=== PATIENT | male | born 1970 ===

== ENCOUNTER 2020-07-09 10:10 | Outpatient (CLI) | payer OTHER, SELFPAY ==
--- NOTE | 2020-07-09 10:00 | DI.RAD_ITS ---
EXAM: XR KNEE LT 3V AP,LAT,JOSE ALBERTO CLINICAL HISTORY: eval L knee pain, h/o surgery and trauma in 80/90s. TECHNIQUE: 2D digital imaging was performed. COMPARISON: No exams were available for comparison FINDINGS: Three views of the left knee reveal no evidence of fracture. There is small amount of increased joint fluid. Advanced degenerative osteoarthritic changes are noted, most prominent in the medial patellof emoral compartment. Chondrocalcinosis is noted in the lateral compartment. There are intra-articular bodies noted in the lateral aspect of the suprapatellar bursa. IMPRESSION: DATA REPOSITORY: RADIATION DOSE DELIVERED:
--- NOTE | 2020-07-09 10:00 | DI.RAD_ITS ---
EXAM: XR FEMUR LT CLINICAL HISTORY: eval L femur, pain and h/o fracture. TECHNIQUE: 2D digital imaging was performed. COMPARISON: No exams were available for comparison FINDINGS: Healed fracture deformity noted at the midshaft of the femur. Significant degenerative changes in th e knee joint. No obvious degenerative changes in the hip joint. Buttock granulomas noted. Sign rib IMPRESSION: DATA REPOSITORY: RADIATION DOSE DELIVERED:
== END 2020-07-09 10:11 | disposition home or self-care (01) ==
LOC: DIORS 10:10
PROVIDERS: PCP Nurse Practitioner Family; Referring Provider Nurse Practitioner Family; Visit Provider Student in an Organized Health Care Education/Training Program
DX: M17.12 Unilateral primary osteoarthritis, left knee (principal); M11.262 Other chondrocalcinosis, left knee; M79.652 Pain in left thigh; M21.852 Other specified acquired deformities of left thigh
CPT/HCPCS: 73552; 73562

== ENCOUNTER 2020-10-29 01:43 | Emergency (ER) | payer OTHER, SELFPAY ==
[2020-10-29] VITALS (8 sets, daily range): BP systolic 113–122; BP diastolic 59–72; PULSE 74–86; RESP 16; TEMP 36.4; O2SAT 96–100
--- NOTE | 2020-10-29 01:45 | DI.CT_ITS ---
Exam(s) CT HEAD WO EXAM: CT HEAD WO CLINICAL HISTORY: seizure, known brain lesion. TECHNIQUE: Imaging Protocol: Axial computed tomography images with coronal and sagittal reformatted images were created and reviewed COMPARISON: No exams were available for comparison FINDINGS: There are no skull fractures nor fluid in the visualized paranasal sinuses. There is mild mucosal t hickening in the right maxillary sinus. No associated fluid therein. There is no evidence of intracranial hemorrhage, mass effect, or shift of midline structures. There are no extra-axial fluid collections. The ventricles are not enlarged or shifted and there is no blo od within the ventricular system nor within the basal cisterns. There is an area of encephalomalacia in the right temporal lobe within the middle cranial fossa and a lilian. Probably related to prior infarction IMPRESSION: No acute intracranial findings on this noninfused CT scan of the brain. Area of encephalomalacia in the right temporal lobe noted. Comparison to prior studies be helpful if they exist. RADIATION DOSE DELIVERED: 794.11mGy.cm Total DLP DATA REPOSITORY: All CT scans at this facility are submitted to the National Radiology Data Registry (NRDR) Dose Index Registry (DIR) with the [employer] (ACR). RADIATION OPTIMIZATION: All CT scans at this facility use at least one of these dose optimization te chniques: automated exposure control; mA and/or kV adjustment per patient size (includes targeted exa ms where dose is matched to clinical indication); or iterative reconstruction.
--- NOTE | 2020-10-29 01:52 | ED.GENADUL_ITS ---
Discharge Plan Disposition Patient Disposition: [facility] Condition: Good Discharge Details Clinical Impression: Seizure Primary Care Provider: Shaina Vargas ED Provider: Juan Carlos Kim Home Meds and New Rx's Prescriptions: New levetiracetam [Keppra] 500 mg tablet 500 mg PO BID Qty: 90 RF: 3 Continued sennosides [senna] 8.6 mg Tablet 17.2 mg PO BID PRNRF: 0 trazodone 50 mg Tablet 50 mg PO QHS PRNRF: 0 riboflavin (vitamin B2) [Vitamin B-2] 100 mg Tablet 200 mg PO BID RF: 0 melatonin 3 mg Tablet 9 mg PO QHS PRNRF: 0 spironolactone 25 mg Tablet 25 mg PO BID RF: 0 ibuprofen 400 mg Tablet 400 mg PO TID PRNRF: 0 docusate sodium [Colace] 100 mg Capsule 100 mg PO BID PRNRF: 0 buspirone 15 mg Tablet 15 mg PO BID RF: 0 calcium phos,dibas-vitamin D3 77-400 mg-unit Tablet 1 tab PO DAILY RF: 0 lactulose 10 gram/15 mL Solution 15 ml PO BID RF: 0 magnesium oxide 400 mg magnesium Tablet 400 mg PO DAILY RF: 0 sodium chloride [Saline Nasal] 0.65 % Aerosol,[place] 2 spray INTRANASAL DAILY PRNRF: 0 Cetaphil Cream 1 applic TOPICAL BID PRNRF: 0 Discharge Instructions Instructions: Recurrent Seizures in Adults (ED) Additional Instructions: With your recurrence of seizures I do feel that it is in your best interest and safety to start you on a new antiepileptic medication. We will use the same 1 that you have used in the past, Keppra. Please take this as directed. Please follow-up closely with your [facility] neurologist. If you notice any worsening of your symptoms, or any new symptoms such as vomiting, diarrhea, fever, chills, shortness of breath, chest pain, numbness, weakness, or fainting , please return immediately to the emergency department for reevaluation. Please follow up with your primary care provider as soon as possible for reassessment and reevaluation. As always, it was a pleasure participating in your medical care today. 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 Patient states in the distant past he was on Keppra, but he has not taken this for some time secondary to unknown reasons. He did have a seizure back in July 08 at [facility], and he has seen neurology on September 21, 2020 at [facility] but declined seizure medications at that time. Today while he was in his custodial cell one of his roommates noted him to be shaking and seizing. He does not recall the event. There was no micturition or defecation. He did not bite his tongue. EMS arrived and the patient was in a postictal state, vital signs are stable, glucose is normal and he is brought into the ER for further evaluation. Currently the patient feels back at his baseline, he denies any headache chest pain shortness of breath numbness tingling or weakness. He denies any new acute changes in his medications. He does not recall the seizure event, but states that how it usually is. He often gets an aura for 60 to 90 seconds before the seizure and then no recollection. He admits to having them usually between 3 and 6 times a year. Patient denies any other complaints. No other modifying factors. Physical exam is unremarkable, neurologic exam is reassuring. Suspect seizure secondary to the lack of medication use, especially in the context of his history of seizure. We will get a CT scan to evaluate for acute change, will get basic labs, gently rehydrate give 2 g of Keppra. Upon review of the last note from [facility] it does appear that they were debating whether or not to start an antiepileptic, however the patient declined at that time however with his new continued onset seizures I do feel that starting him on Keppra would be beneficial for his health and wellbeing at this time. 2:56 AM Patient remained stable here in the ED. Repeat neurologic exam continues to show no focal neurologic deficits. Laboratory work-up has returned relatively unremarkable. No significant abnormalities. Patient stable. CT scan demonstrates previous area of encephalomalacia noted on previous [facility] images. We did give the patient 2 g of Keppra here, and will give her prescription for Keppra for home use. I think it would be unwise at this point to keep the patient off of antiepileptic medications for the time being especially in regards to his history of cirrhosis, and his notable proclivity towards prolonged bleeding that he is stated clinically whenever he cuts himself even with a paper cut likely secondary to his chronic cirrhosis. If the patient did have another epileptic episode and he fell and hit his head, fell off a bunk or had some other form of trauma I feel it would be very life-threatening potentially. Discussed red flags which to return as well as the importance of close follow-up with neurology. I have extensively reviewed the treatment plan and discharge instructions with the patient. I have addressed all patient concerns at this time. The patient was made aware of what symptoms to monitor for that would warrant a return to the emergency department. Discussed the plan with the patient, they demonstrate verbal understanding and agreement with our assessment and plan at this time. The documentation in this chart was dictated using [employer] dictation software. Please excuse any dictation errors. FINDINGS: Brain: Gliosis/encephalomalacia in the posterior right temporal lobe No hemorrhage. No mass effect. Cerebral ventricles: No ventriculomegaly. Paranasal sinuses: Visualized sinuses are unremarkable. No fluid levels. Mastoid air cells: Visualized mastoid air cells are well aerated. Bones/joints: Unremarkable. No acute fracture. Soft tissues: Unremarkable. IMPRESSION: No acute intracranial hemorrhage Presumed gliosis/encephalomalacia in the posterior right temporal lobe. Thank you for allowing us to participate in the care of your patient. HPI General Date/Time Provider Initiated Documentation: 10/29/20 02:37 . 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 Patient states in the distant past he was on Keppra, but he has not taken this for some time secondary to unknown reasons. He did have a seizure back in July 08 at [facility], and he has seen neurology on September 21, 2020 at [facility] but declined seizure medications at that time. Today while he was in his custodial cell one of his roommates noted him to be shaking and seizing. He does not recall the event. There was no micturition or defecation. He did not bite his tongue. EMS arrived and the patient was in a postictal state, vital signs are stable, glucose is normal and he is brought into the ER for further evaluation. Currently the patient feels back at his baseline, he denies any headache chest pain shortness of breath numbness tingling or weakness. He denies any new acute changes in his medications. He does not recall the seizure event, but states that how it usually is. He often gets an aura for 60 to 90 seconds before the seizure and then no recollection. He admits to having them usually between 3 and 6 times a year. Patient denies any other complaints. No other modifying factors. Related Data Home Medications Medication Instructions Recorded Confirmed Cetaphil 1 applic TOPICAL BID PRN 10/29/20 10/29/20 buspirone 15 mg PO BID 10/29/20 10/29/20 calcium phos,dibas-vitamin D3 1 tab PO DAILY 10/29/20 10/29/20 docusate sodium [Colace] 100 mg PO BID PRN 10/29/20 10/29/20 ibuprofen 400 mg PO TID PRN 10/29/20 10/29/20 lactulose 15 ml PO BID 10/29/20 10/29/20 levetiracetam [Keppra] 500 mg PO BID #90 tab 10/29/20 magnesium oxide 400 mg PO DAILY 10/29/20 10/29/20 melatonin 9 mg PO QHS PRN 10/29/20 10/29/20 riboflavin (vitamin B2) [Vitamin 200 mg PO BID 10/29/20 10/29/20 B-2] sennosides [senna] 17.2 mg PO BID PRN 10/29/20 10/29/20 sodium chloride [Saline Nasal] 2 spray INTRANASAL DAILY PRN 10/29/20 10/29/20 spironolactone 25 mg PO BID 10/29/20 10/29/20 trazodone 50 mg PO QHS PRN 10/29/20 10/29/20 Previous Rx's Medication Instructions Recorded levetiracetam [Keppra] 500 mg PO BID #90 tab 10/29/20 Allergies Allergy/AdvReac Type Severity Reaction Status Date / Time diphenhydramine Allergy Intermediate FACIAL Verified 10/29/20 01:41 [From Benadryl] EDEMA lorazepam Allergy Unknown Unverified 10/29/20 01:40 Penicillins Allergy Unknown Verified 10/29/20 01:41 Review of Systems All systems reviewed & are unremarkable except as noted in HPI and below PFSH Medical History Closed left femoral fracture Osteoarthritis of left knee Social History Smoking/Tobacco Use Status: Former Tobacco Use Smoking risk assessment performed?: Yes Do you feel safe at home: Yes (Incarcerated) Exam Narrative Exam Narrative: 1.Const: Well-nourished, Well-developed, appearing stated age 2.Eyes: PERRL, no conjunctival injection, and symmetrical lids. 3.ENT: Atraumatic external nose and ears. Notably dry MM. Neck: Symmetric, trachea midline, No thyromegaly. 4.CVS: +S1/S2, No murmurs or gallops. Peripheral pulses 2+ and equal in all extremities. Brisk capillary refill in all extremities. 5.RESP: Unlabored respiratory effort. Clear to auscultation bilaterally. No wheezes rales or rhonchi 6.GI: Soft, Nontender/Nondistended, No hepatosplenomegaly. No guarding or rebound. 7.MSK: Normocephalic/Atraumatic, Extremities w/o deformity or ttp No cyanosis or clubbing, Normal movement of all extremities. No asterixis 8.Skin: Warm, Dry. No rashes or lesions. 9.Neuro: depilatory painter II-XII grossly intact. Sensation grossly intact, no focal neurologic deficits. No dysdiadochokinesia or dysmetria. No ataxia. 10.Psych: (AAO) x3. Appropriate mood and affect
--- NOTE | 2020-10-29 02:24 | DI.VRAD_ITS ---
PROCEDURE INFORMATION: Exam: CT Head Without Contrast Exam date and time: 10/29/2020 1:47 AM Age: 50 years old Clinical indication: Other: Seizure, known brain lesion TECHNIQUE: Imaging protocol: Computed tomography of the head without contrast. Radiation optimization: All CT scans at this facility use at least one of these dose optimization techniques: automated exposure control; mA and/or kV adjustment per patient size (includes targeted exams where dose is matched to clinical indication); or iterative reconstruction. COMPARISON: No relevant prior studies available. FINDINGS: Brain: Gliosis/encephalomalacia in the posterior right temporal lobe No hemorrhage. No mass effect. Cerebral ventricles: No ventriculomegaly. Paranasal sinuses: Visualized sinuses are unremarkable. No fluid levels. Mastoid air cells: Visualized mastoid air cells are well aerated. Bones/joints: Unremarkable. No acute fracture. Soft tissues: Unremarkable. IMPRESSION: No acute intracranial hemorrhage Presumed gliosis/encephalomalacia in the posterior right temporal lobe. Comparison with prior images would be helpful. Dictated and Authenticated by: Jerry Sanchez MD. Ordering:MARIANA Rangel MD
[2020-10-29 02:33] LABS: Abs Immature Grans 0.02 10^3/uL (0.0-0.06); Absolute Basophil Count 0.04 10^3/uL (0.0-0.2); Absolute Eosinophil Count 0.39 10^3/uL (0.0-0.7); Absolute Lymphocyte Count 1.98 10^3/uL (1.2-3.4); Absolute Monocyte Count 0.51 10^3/uL (0.1-0.8); Absolute Neutrophil Count 3.42 10^3/uL (1.2-6.7); Basophils % 0.6; Eosinophils % 6.1; HCT 38.2 % (40.0-50.0); HGB 12.5 g/dL (13.5-17.5); Immature Grans % 0.3; Lymphocytes % 31.1; MCH 28.2 pg (27.0-33.0); MCHC 32.7 % (32.0-36.0); MCV 86.2 fL (80-95); MPV 9.3 fL (8.0-11.0); Neutrophils % 53.9; Nucleated RBC 0 %; Platelet Count 233 10^3/uL (130-400); RBC 4.43 10^6/uL (4.36-5.78); RDW 13.3 % (11.8-14.1); RDW-SD 41.6 fL; WBC 6.36 10^3/uL (4.4-10.8)
[2020-10-29] MEDS: Normal Saline 1,000 ML 1000 ML IV (02:33)
[2020-10-29] MEDS: levETIRAcetam 2,000 MG in Normal Saline 100 ML 400 MG IVPB (02:34)
[2020-10-29 02:43] LABS: Ammonia < 10 umol/L (11-32)
[2020-10-29 02:51] LABS: ALT 26 U/L (16-63); AST 42 U/L (15-37); Albumin 3.7 g/dL (3.4-5.0); Alkaline Phosphatase 90 U/L (46-116); Anion Gap 5.8 mmol/L (3-11); BUN 10 mg/dL (7-18); Bilirubin, Total 0.4 mg/dL (0.2-1.0); CO2 32.2 mmol/L (21.0-32.0); CREATININE 0.7 mg/dL (0.70-1.30); Calcium 8.9 mg/dL (8.5-10.1); Chloride 104 mmol/L (98-107); Glucose 85 mg/dL (74-106); Potassium 4.1 mmol/L (3.5-5.1); Sodium 142 mmol/L (136-145); Total Protein 7.2 g/dL (6.4-8.2)
== END 2020-10-29 03:39 | disposition home or self-care (01) ==
LOC: ER 03:05
PROVIDERS: Emergency Provider Student in an Organized Health Care Education/Training Program; PCP Nurse Practitioner Family
DX: R56.9 Unspecified convulsions (principal)
CPT/HCPCS: 36415; 80053; 96361; 96365; 99284; 70450; 82140; 85025; J1953

== ENCOUNTER 2021-01-13 00:21 | Emergency (ER) | payer OTHER, SELFPAY ==
[2021-01-13 00:24] VITALS: BP 116/72; PULSE 91; RESP 16; TEMP 37; O2SAT 97
[2021-01-13] MEDS: Normal Saline 500 ML IV (00:31)
[2021-01-13] MEDS: levETIRAcetam 1,000 MG in Normal Saline 100 ML 400 MG IVPB (00:39)
--- NOTE | 2021-01-13 00:45 | W.ED.GENAD ---
Discharge Plan Disposition Patient Disposition: HOME Condition: Good Discharge Details Clinical Impression: Seizure Primary Care Provider: Shaina Vargas ED Provider: Juan Carlos Kim Home Meds and New Rx's Prescriptions: Continued sennosides [senna] 8.6 mg Tablet 17.2 mg PO BID PRNRF: 0 trazodone 50 mg Tablet 50 mg PO QHS PRNRF: 0 riboflavin (vitamin B2) [Vitamin B-2] 100 mg Tablet 200 mg PO BID RF: 0 melatonin 3 mg Tablet 9 mg PO QHS PRNRF: 0 spironolactone 25 mg Tablet 25 mg PO BID RF: 0 ibuprofen 400 mg Tablet 400 mg PO TID PRNRF: 0 docusate sodium [Colace] 100 mg Capsule 100 mg PO BID PRNRF: 0 buspirone 15 mg Tablet 15 mg PO BID RF: 0 calcium phos,dibas-vitamin D3 77-400 mg-unit Tablet 1 tab PO DAILY RF: 0 lactulose 10 gram/15 mL Solution 15 ml PO BID RF: 0 magnesium oxide 400 mg magnesium Tablet 400 mg PO DAILY RF: 0 sodium chloride [Saline Nasal] 0.65 % Aerosol,[place] 2 spray INTRANASAL DAILY PRNRF: 0 Cetaphil Cream 1 applic TOPICAL BID PRNRF: 0 levetiracetam [Keppra] 500 mg tablet 500 mg PO BID Qty: 90 RF: 3 Discharge Instructions Instructions: Recurrent Seizures in Adults (ED) Additional Instructions: Please stay well-hydrated and drink plenty of fluids. It is my recommendation that you continue taking your Keppra as prescribed. This will help prevent the seizures that you are having. If you notice any worsening of your symptoms, or any new symptoms such as vomiting, diarrhea, fever, chills, shortness of breath, chest pain, numbness, weakness, or fainting , please return immediately to the emergency department for reevaluation. Please follow up with your primary care provider as soon as possible for reassessment and reevaluation. As always, it was a pleasure participating in your medical care today. 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 Per nursing home staff, the patient was lying in bed when he was noticed to have a seizure lasting around a minute, with tonic-clonic component. He eventually stopped seizing on his own, he was subsequently brought in by EMS for further evaluation. Glucose normal, neurovascular exam and neurologic assessment unremarkable on EMS arrival. Patient did have a postictal phase but was acting normally upon EMS assessment. Currently the patient has no complaints, he does state that he does not take his Keppra by choice, as he does not feel like it was helping. He denies any IV or illicit drugs. He denies any other complaints. Physical exam demonstrates no neurologic deficits, small bite on the tip of the tongue, no other abnormalities, no meningeal signs. Patient has not been taking his Keppra and his subsequently sees, I feel this is because of his underlying chronic brain conditions resulting in seizures. Did recommend that the patient continue with Keppra, did recommend getting 1 g of Keppra here, and 500 cc bolus, patient verbalized agreement with this plan. With no focal neurologic deficits, no trauma, I see no indication for repeat neuroimaging emergently at this time. 1:18 AM Patient has been reassessed, no focal neurologic deficits on reassessment. Patient feeling well, he has been well-hydrated. Recommend continuing his Keppra back in nursing home. Discussed the importance of medication compliance to prevent future seizures. Discussed red flags which to return. Patient appropriate for discharge at this time. I have extensively reviewed the treatment plan and discharge instructions with the patient. I have addressed all patient concerns at this time. The patient was made aware of what symptoms to monitor for that would warrant a return to the emergency department. Discussed the plan with the patient, they demonstrate verbal understanding and agreement with our assessment and plan at this time. The documentation in this chart was dictated using [email or web address] dictation software. Please excuse any dictation errors. HPI General Date/Time Provider Initiated Documentation: 01/13/21 00:44. 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 Per nursing home staff, the patient was lying in bed when he was noticed to have a seizure lasting around a minute, with tonic-clonic component. He eventually stopped seizing on his own, he was subsequently brought in by EMS for further evaluation. Glucose normal, neurovascular exam and neurologic assessment unremarkable on EMS arrival. Patient did have a postictal phase but was acting normally upon EMS assessment. Currently the patient has no complaints, he does state that he does not take his Keppra by choice, as he does not feel like it was helping. He denies any IV or illicit drugs. He denies any other complaints. Related Data Home Medications Medication Instructions Recorded Confirmed Cetaphil 1 applic TOPICAL BID PRN 10/29/20 10/29/20 buspirone 15 mg PO BID 10/29/20 01/13/21 calcium phos,dibas-vitamin D3 1 tab PO DAILY 10/29/20 10/29/20 docusate sodium [Colace] 100 mg PO BID PRN 10/29/20 01/13/21 ibuprofen 400 mg PO TID PRN 10/29/20 01/13/21 lactulose 15 ml PO BID 10/29/20 10/29/20 levetiracetam [Keppra] 500 mg PO BID #90 tab 10/29/20 magnesium oxide 400 mg PO DAILY 10/29/20 10/29/20 melatonin 9 mg PO QHS PRN 10/29/20 10/29/20 riboflavin (vitamin B2) [Vitamin 200 mg PO BID 10/29/20 10/29/20 B-2] sennosides [senna] 17.2 mg PO BID PRN 10/29/20 01/13/21 sodium chloride [Saline Nasal] 2 spray INTRANASAL DAILY PRN 10/29/20 10/29/20 spironolactone 25 mg PO BID 10/29/20 10/29/20 trazodone 50 mg PO QHS PRN 10/29/20 01/13/21 Previous Rx's Medication Instructions Recorded levetiracetam [Keppra] 500 mg PO BID #90 tab 10/29/20 Allergies Allergy/AdvReac Type Severity Reaction Status Date / Time diphenhydramine Allergy Intermediate FACIAL Verified 01/13/21 00:28 [From Benadryl] EDEMA lorazepam Allergy Unknown Unverified 01/13/21 00:28 Penicillins Allergy Unknown Verified 01/13/21 00:28 General Stated Complaint: Seizure SUHA: 4 Review of Systems All systems reviewed & are unremarkable except as noted in HPI and below PFSH Medical History Closed left femoral fracture Osteoarthritis of left knee Social History Smoking/Tobacco Use Status: Former Tobacco Use Smoking risk assessment performed?: Yes Alcohol Intake: former Substance use type: does not use Do you feel safe at home: Yes (Incarcerated) Exam Narrative Exam Narrative: 1.Const: Well-nourished, Well-developed, appearing stated age 2.Eyes: PERRL, no conjunctival injection, and symmetrical lids. 3.ENT: Atraumatic external nose and ears. Moist MM. Neck: Symmetric, trachea midline, No thyromegaly. Patient demonstrates good movement of cervical neck. There is no nuchal rigidity, no nuchal tenderness. Patient is able to flex the neck without any difficulty or significant pain. Negative Kernig's and Brudzinski sign. Small bite on the tip of the tongue 4.CVS: +S1/S2, No murmurs or gallops. Peripheral pulses 2+ and equal in all extremities. Brisk capillary refill in all extremities. 5.RESP: Unlabored respiratory effort. Clear to auscultation bilaterally. No wheezes rales or rhonchi 6.GI: Soft, Nontender/Nondistended, No hepatosplenomegaly. No guarding or rebound. 7.MSK: Normocephalic/Atraumatic, Extremities w/o deformity or ttp No cyanosis or clubbing, Normal movement of all extremities 8.Skin: Warm, Dry. No rashes or lesions. 9.Neuro: retaining room cutter II-XII grossly intact. Sensation grossly intact, no focal neurologic deficits. All 6 cardinal planes of vision are fully intact. No evidence of rotatory or vertical nystagmus. The patient demonstrated a normal [id number], good dexterity. There was no evidence of dysdiadochokinesia. Patient was able to ambulate without difficulty. There was no wide-based gait. Romberg testing was normal. [id number] testing was normal. Sensation was intact bilaterally as well as muscle strength bilaterally for all extremities. Patient was able to verbalize butter cup with no slurring, or miss pronunciation. 10.Psych: (AAO) x3. Appropriate mood and affect Course Vital Signs Vital signs: Vital Signs Temperature 37.0 C 01/13/21 00:24 Pulse 91 H 01/13/21 00:24 Respiratory Rate 16 01/13/21 00:24 Blood Pressure 116/72 01/13/21 00:24 Pulse Oximetry 97 01/13/21 00:24 Temperature 37.0 C 01/13/21 00:24 Pulse 91 H 01/13/21 00:24 Respiratory Rate 16 01/13/21 00:24 Respiratory Effort Non-Labored 01/13/21 00:30 Respiratory Depth Normal 01/13/21 00:30 Respiratory Pattern Normal 01/13/21 00:30 Blood Pressure 116/72 01/13/21 00:24 Pulse Oximetry 97 01/13/21 00:24 Pain Level 9 01/13/21 00:24
[2021-01-13 01:00] VITALS: BP 112/91; PULSE 74; RESP 16; O2SAT 98
== END 2021-01-13 01:16 | disposition home or self-care (01) ==
LOC: ER 00:59
PROVIDERS: Emergency Provider Student in an Organized Health Care Education/Training Program; PCP Nurse Practitioner Family
DX: R56.9 Unspecified convulsions (principal); Z91.14 Patient's other noncompliance with medication regimen
CPT/HCPCS: 96361; 96365; 99284; 99283; J1953

== ENCOUNTER 2021-02-07 22:19 | Emergency (ER) | payer OTHER, SELFPAY ==
[2021-02-07] VITALS (8 sets, daily range): BP systolic 123–128; BP diastolic 74–78; PULSE 71–98; RESP 18; TEMP 37; O2SAT 97–100
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
[2021-02-07 23:02] LABS: Abs Immature Grans 0.01 10^3/uL (0.0-0.06); Absolute Basophil Count 0.03 10^3/uL (0.0-0.2); Absolute Eosinophil Count 0.37 10^3/uL (0.0-0.7); Absolute Lymphocyte Count 2.21 10^3/uL (1.2-3.4); Absolute Monocyte Count 0.29 10^3/uL (0.1-0.8); Absolute Neutrophil Count 2.72 10^3/uL (1.2-6.7); Basophils % 0.5; Eosinophils % 6.6; HCT 33.9 % (40.0-50.0); HGB 11.2 g/dL (13.5-17.5); Immature Grans % 0.2; Lymphocytes % 39.3; MCH 28.5 pg (27.0-33.0); MCV 86.3 fL (80-95); MPV 9.5 fL (8.0-11.0); Monocytes % 5.2; Neutrophils % 48.2; Nucleated RBC 0 %; Platelet Count 192 10^3/uL (130-400); RBC 3.93 10^6/uL (4.36-5.78); RDW 12.6 % (11.8-14.1); RDW-SD 39.8 fL; WBC 5.63 10^3/uL (4.4-10.8)
[2021-02-07 23:16] LABS: ALT 15 U/L (16-63); AST 17 U/L (15-37); Albumin 3.7 g/dL (3.4-5.0); Alkaline Phosphatase 73 U/L (46-116); Anion Gap 10.2 mmol/L (3-11); BUN 8 mg/dL (7-18); Bilirubin, Total 0.5 mg/dL (0.2-1.0); CO2 27.8 mmol/L (21.0-32.0); CREATININE 0.8 mg/dL (0.70-1.30); Calcium 8.8 mg/dL (8.5-10.1); Chloride 103 mmol/L (98-107); Glucose 97 mg/dL (74-106); Potassium 3.5 mmol/L (3.5-5.1); Sodium 141 mmol/L (136-145); TROPONIN-I < 0.5 ug/mL (4.0-12.0); Total Protein 7.1 g/dL (6.4-8.2)
[2021-02-07] MEDS: levETIRAcetam 250 MG TAB 1000 MG PO (23:23)
== END 2021-02-07 23:40 | disposition home or self-care (01) ==
PROVIDERS: Emergency Provider Emergency Medicine; PCP Nurse Practitioner Family
DX: G40.409 Other generalized epilepsy and epileptic syndromes, not intractable, without status epilepticus (principal); Z91.14 Patient's other noncompliance with medication regimen
CPT/HCPCS: 36415; 80053; 99283; 80156; 85025